=== PATIENT | female | born 1950 | race Caucasian/White ===

== ENCOUNTER 2016-11-11 01:55 | Emergency (ER) | payer OTHER, MEDICAID ==
[2016-11-11 03:41] VITALS: BP 123/66
== END 2016-11-11 03:41 | disposition home or self-care (01) ==
LOC: ED 01:55
DX: L02.414 Cutaneous abscess of left upper limb (principal); L03.114 Cellulitis of left upper limb; E11.40 Type 2 diabetes mellitus with diabetic neuropathy, unspecified; Z79.4 Long term (current) use of insulin; Z79.84 Long term (current) use of oral hypoglycemic drugs; Z79.899 Other long term (current) drug therapy; Z90.49 Acquired absence of other specified parts of digestive tract; Z90.710 Acquired absence of both cervix and uterus
CPT/HCPCS: J2001

== ENCOUNTER 2016-11-18 23:48 | Inpatient (IN) | payer OTHER, MEDICAID ==
[~2016-11-18] VITALS: Ht 154.9 cm; Wt 71.4 kg
--- NOTE | 2016-11-19 00:59 | NUR ---
PT PRESENTS TO ED WITH C/O BILATERAL LEG PAIN. PT STATES SHE ALMOST FELL DOWN AND SHE TRIED TO BREAK THE FALL AND HURT HERSELF. PT REPORTS PAIN STARTS ON HIPS AND RADIATES TO LOWER EXTREMITIES. PT HAS FULL ROM ON BOTH EXTREMITIES. PT REPORTS PAIN LEVEL 10/10 AND DESCRIBES PAIN "CRAMPING." PT IS AAOX4, BREATHING EVEN AND UNLABORED. PT IN NO ACUTE DISTRESS. AWAITING MSE.
[2016-11-19 03:08] LABS: BASOPHIL % 3.6 % (0-2); PLATELET COUNT 431 x10^3mcL (130-400); RED CELL DISTRIBUTION WIDTH 13.1 % (11.5-14.5)
[2016-11-19 03:15] LABS: CALCIUM 8.8 mg/dL (8.5-10.1); CARBON DIOXIDE 24.1 mmol/L (21-32); CREATININE SERUM 1.7 mg/dL (0.6-1.0)
--- NOTE | 2016-11-19 03:17 | NUR ---
PT RESTING WITH DAUGHTER AT BEDSIDE. PT IS AAOX4, BREATHING EVEN AND UNLABORED. PT IN NO ACUTE DISTRESS.
[2016-11-19 03:19] LABS: POTASSIUM SERUM 6.7 mmol/L (3.5-5.1)
[2016-11-19 03:27] LABS: microscopic required? NO
[2016-11-19 03:44] LABS: urine erythrocyte NEGATIVE (NEGATIVE)
--- NOTE | 2016-11-19 04:36 | NUR ---
PT SLEEPING, AWAKES WITH VERBAL STIMULI. PT IS AAOX4, BREATHING EVEN AND UNLABORED. PT IN NO ACUTE DISTRESS. FAMILY BY BEDSIDE.
[2016-11-19] MEDS ORDERED: WELLBUTRIN XL150 M1 PO (06:04)
[2016-11-19] MEDS ORDERED: NAPROSYN500 MG PO (06:04)
[2016-11-19] MEDS ORDERED: NEU300 PO (06:04)
[2016-11-19] MEDS ORDERED: JANUVIA100 M1 PO (06:05)
[2016-11-19] MEDS ORDERED: METFORMIN500 M1 PO ×2 (06:05→09:44)
[2016-11-19] MEDS ORDERED: LANTUS SOLOS100 U/M1 SQ (06:05)
[2016-11-19] MEDS ORDERED: HUMALOG100 UNIT/1 SQ (06:05)
[2016-11-19] MEDS ORDERED: LASIX20 MG PO (06:06)
[2016-11-19] MEDS ORDERED: LIPI10 PO (06:06)
[2016-11-19] MEDS ORDERED: KEN025C TOP (06:06)
[2016-11-19] MEDS ORDERED: ECONAZOLE NITRATE1% TOP (06:06)
[2016-11-19] MEDS ORDERED: RAMIPRIL10 M1 PO (06:06)
[2016-11-19] MEDS ORDERED: OMEPRAZOLE20 M4 PO (06:07)
--- NOTE | 2016-11-19 06:19 | NUR ---
GAVE REPORT TO CHUY TOVAR, TO ASSUME CARE POST TRASNFER TO ROOM 261A
--- NOTE | 2016-11-19 06:51 | NUR ---
PT ARRIVED VIA [facility] ACCOMPANIED BY ER NURSE AND DAUGHTER. A/O X4, MOSTLY WELSH SPEAKING. TELE #44, NSR, DENIES CHEST PAIN. PULSES PALPABLE, NO EDEMA PRESENT. LUNG SOUNDS CTA, BREATHING FREELY ON RA. PT DENIES SOB AT THIS TIME, BUT ADMITS TO SOB UPON EXERTION. ABD SOFT AND ROUND, BOWEL TONES ACTIVE, LBM-11/18/16, FORMED. VOIDS ADEQUATELY. PT'S DAUGHTER REPORTS PT IS AMBULATORY WITHOUT ASSIST AT HOME, BUT USES A CANE WHEN GOING TO RUN ERRANDS. ABRASION NOTED TO LEFT ELBOW, NO ACTIVE BLEEDING. PT DENIES PAIN. IV TO RAC, PATENT AND INTACT. ORIENTED PT TO ROOM AND SURROUNDINGS. BED IN LOWEST SETTING, SIDE RAILS UP X2, CALL LIGHT WITHIN REACH. WILL ENDORSE CARE TO AM NURSE.
[2016-11-19 06:54] VITALS: BP 120/58
[2016-11-19 06:55] LABS: MAGNESIUM 2.7 mg/dL (1.8-2.4); PHOSPHOROUS 4.7 mg/dL (2.5-4.9)
[2016-11-19 06:56] LABS: CHOLESTEROL/HDL RATIO 4.2
[2016-11-19 07:03] LABS: FREE T4 0.92 ng/dL (0.76-1.46); FREE THYROXINE INDEX 2.3 ug/dL (1.4-4.5); T4(THYROXINE) 5.9 ug/dL (4.7-13.3)
[2016-11-19 07:25] VITALS: BP 120/58
[2016-11-19 07:47] LABS: T3 TOTAL 0.76 ng/mL
--- NOTE | 2016-11-19 08:15 | NUR ---
PT IS AWAKE ALERT AND ORIENTED X4 ABLE TO MAKE NEEDS KNOWN. LUNGS CTA, DENIES SOB. TELE 44, SR. PULSES EQUAL BILATERAL MILD GENERALIZED EDEMA. GENERALIZED WEAKNESS, CANE AT BEDSIDE, LEO IN LOW POSITION, NON SKID FOOTWEQAR IN PLACE, CALL LIGHT IN REACH FAMILY AT BEDSIDE. WILL CONTINUE TO MONITOR.
[2016-11-19 08:31] VITALS: BP 120/58
[2016-11-19] MEDS ORDERED: LIPI20 PO (09:44)
--- NOTE | 2016-11-19 11:12 | NUR ---
PT IS RESTING IN BED, FAMILY AT BEDSIDE. NO SIGNS OF DISTRESS DENIES PAIN AT THIS TIME. WILL CONTINUE TO MONITOR.
[2016-11-19 12:00] VITALS: BP 130/80
[2016-11-19 12:47] LABS: CALCIUM 8.8 mg/dL (8.5-10.1); CARBON DIOXIDE 26.2 mmol/L (21-32); CREATININE SERUM 1.4 mg/dL (0.6-1.0)
[2016-11-19 13:01] LABS: POTASSIUM SERUM 5.6 mmol/L (3.5-5.1)
--- NOTE | 2016-11-19 13:05 | NUR ---
PAGED DR MORENO
--- NOTE | 2016-11-19 17:01 | NUR ---
BLOOD SUGAR CHECKED 126 NO COVERAGE.
[2016-11-19 17:07] VITALS: BP 129/63
--- NOTE | 2016-11-19 17:41 | NUR ---
PT RESTING IN BED NO SIGNS OF DISTRESS CALL LIGHT IN REACH WILL CONTINUE TO MONITOR.
[2016-11-19 18:45] LABS: CALCIUM 8.8 mg/dL (8.5-10.1); CARBON DIOXIDE 25.4 mmol/L (21-32); CREATININE SERUM 1.3 mg/dL (0.6-1.0); POTASSIUM SERUM 5.2 mmol/L (3.5-5.1)
--- NOTE | 2016-11-19 19:51 | NUR ---
REC'D REPORT FROM DAY NURSE. AAOX4. SITTING UP IN BED, EATING DINNER. DENIES PAIN AT THIS TIME. NO DISTRESS NOTED. TELE #44 NSR. LUNG SOUNDS ARE CTA. NO SOB. BREATHING EVEN AND UNLABORED. DENIES N/V/D. LBM WAS 11/19/16. ABD SOFT AND ROUND, ACTIVE X4. NO EDEMA NOTED. IV ACCESS TO THE RAC INFUSING @100 ML/HR. BED IN LOWEST POSITION. CALL LIGHT WITHIN REACH. WILL PROCEED TO THE PLAN OF CARE.
[2016-11-19 20:54] VITALS: BP 127/46
--- NOTE | 2016-11-19 23:30 | NUR ---
ROUNDS MADE, PT IS CURRENTLY WATCHING TV. NO ACUTE DISTRESS NOTED. NO SOB. BREATHING EVEN AND UNLABORED. DENIES N/V. WILL CONT TO MONITOR.
--- NOTE | 2016-11-20 01:55 | NUR ---
ROUNDS MADE, PT IS SLEEPING. NO DISTRESS NOTED. WILL CONT TO MONITOR.
--- NOTE | 2016-11-20 05:50 | NUR ---
PT SLEPT PERIODICALLY THROUGHOUT THE NIGHT. NO SIGNIFICANT CHANGES OR DISTRESS NOTED. ALL NEEDS MET AND ATTENDED TO. BREATHING EVEN AND UNLABORED. IV INTACT AND PATENT INFUSING WELL. WILL CONT TO MONITOR.
[2016-11-20 06:38] LABS: CALCIUM 8.4 mg/dL (8.5-10.1); CARBON DIOXIDE 28.3 mmol/L (21-32); MAGNESIUM 1.8 mg/dL (1.8-2.4); POTASSIUM SERUM 4.3 mmol/L (3.5-5.1)
--- NOTE | 2016-11-20 06:40 | NUR ---
WILL ENDORSE ALL CONTINUITY CARE TO ONCOMING NURSE.
[2016-11-20 06:41] LABS: BASOPHIL % 0.4 % (0-2); PLATELET COUNT 388 x10^3mcL (130-400)
[2016-11-20 06:43] VITALS: BP 134/61
--- NOTE | 2016-11-20 08:00 | NUR ---
PATIENT RECEIVED ALERT ND OREINTED TIMES FOUR. PATIENT AMBULATES WTIH A CANE AND DENIES ANY DIZZINESS OR LIGHT HEADEDNESS.PTEINT TOLERATED DIET AND FLUIDS WELL. APTIENT AHS NO EDEMA AND PATIEN TIS WITH DISTENDED BUT SOFT ABDOOMEN.LUNG ARE CLEAR AND NO COUGH OR CONGESTION TOED. PATIENT WITH VITALS AT 97.8 88, 18, 134/61, 98% ON ROOM AIR. PATEINT LAST BLOOD SUGAR WAS AT 102. PATIE SAMUEL NOTED LABS OF H AND H OF 7.9/25, AND IS PRESENTLY ON IRON INDICATED. PATENTAS HAS BUN OF 19.0, CHLORIDE OF 109, PTT AT 23.0 AND PT AT 9.4. PATIEN REGLA NEGATIVE CHEST XRAY AND DENIES PAIN OR DISCOMFORT AT THIS TME. POTASSIUM IS NOW AT 4.3 FORM 5.2.M HX OF DM, NEUROPATHY AND ARTHRITIS NTOED. NO KNOWN ALLERGIES.
--- NOTE | 2016-11-20 08:30 | NUR ---
PATIENT SEEN BY THE INTERNS AND RESIDENT AND PLAN OF CARE DISCUSSED. PATIENT HAS BEEN TOLD SHE WILL BE DISCHARGED TO HOME TODAY.
[2016-11-20 09:11] VITALS: BP 129/69
--- NOTE | 2016-11-20 13:00 | NUR ---
PATIENT BLOOD SUGAR AT LUNCH AT 204 AND GAVE6 UNITS OF REGULAR ORDERED. PATIENT TOLERATED DIET AND FLUIDS WELL. AWAITING DISCHARGE ORDERED FOR DISCHARGE HOME TODAY. FAMILY AT BEDSIDE AWAITING ORDERS.
[2016-11-20] MEDS ORDERED: FERL PO (13:24)
[2016-11-20] MEDS ORDERED: VITAMIN C100 M2 PO (13:25)
[2016-11-20 13:38] VITALS: BP 128/57
[2016-11-20 14:21] VITALS: BP 128/57
--- NOTE | 2016-11-20 14:56 | NUR ---
PAGED TYPEWRITER TESTER TO REQUEST TO FINALIZE THE ORDERS FOR DISCHARGE SO PATIENT CAN GO HOME.
--- NOTE | 2016-11-20 15:42 | NUR ---
GAVED DISCHARGE PAPERWORK TO THE PATIENT AND PATIENT WANTS A COPY OF HER LABS AND SHE IS FOR DISCHARER HOME TODAY AND TO FOLOOW [facility]OP WITH PIRMARY INDICATED. SHE IS TO TAKE IRON DIRRECTED FOR ANEMIA AND EDUCATION GIVEN FOR ANEMIA, GLUCOSE AND HYPERTENSION. PATIENT IS ANXIOUS TO GO HOME TODAY. IV REMOVED ALONG WITH THE TELE MONITOR. AWAITING PATIENT TO GET DRESSED AND WILL DISCHARGE TO HOME INDICATED.
--- NOTE | 2016-11-20 17:12 | NUR ---
DISCHARGE TO HOME WITH ALL BELONGINGS. PATIENT IN NO ACUTE DISTRESS AT THE TIME OF DISCHARGE.
== END 2016-11-20 16:11 | disposition home or self-care (01) | DRG 640 ==
LOC: ED 23:48 → DU 11-19 05:37
PROVIDERS: Emergency Medicine Emergency Medical Services; ADMIT Family Medicine Sports Medicine
DX: E87.5 Hyperkalemia (principal); N17.0 Acute kidney failure with tubular necrosis; D64.9 Anemia, unspecified; E11.42 Type 2 diabetes mellitus with diabetic polyneuropathy; E78.5 Hyperlipidemia, unspecified; M19.90 Unspecified osteoarthritis, unspecified site; F17.210 Nicotine dependence, cigarettes, uncomplicated; Z68.29 Body mass index [BMI] 29.0-29.9, adult; Z79.4 Long term (current) use of insulin
CPT/HCPCS: 84439; J1815; J3490; J7030; Q0092

== ENCOUNTER 2017-09-05 17:25 | Emergency (ER) | payer OTHER, MEDICAID ==
[~2017-09-05] VITALS: Ht 160 cm; Wt 75.3 kg
[~2017-09-05 17:25] MED LIST: ECONAZOLE NITRATE1% TOP; FERL PO; HUMALOG100 UNIT/1 SQ; JANUVIA100 M1 PO; KEN025C TOP; LANTUS SOLOS100 U/M1 SQ; LASIX20 MG PO; LIPI10 PO; LIPI20 PO; METFORMIN500 M1 PO; NAPROSYN500 MG PO; NEU300 PO; OMEPRAZOLE20 M4 PO; RAMIPRIL10 M1 PO; VITAMIN C100 M2 PO; WELLBUTRIN XL150 M1 PO
[2017-09-05 20:52] VITALS: BP 143/75
== END 2017-09-05 20:52 | disposition home or self-care (01) ==
LOC: ED 17:25
DX: L03.116 Cellulitis of left lower limb (principal); E11.9 Type 2 diabetes mellitus without complications; F17.210 Nicotine dependence, cigarettes, uncomplicated; Z71.6 Tobacco abuse counseling
CPT/HCPCS: 99406

== ENCOUNTER 2018-10-15 08:29 | Emergency (ER) | payer OTHER, MEDICAID ==
[~2018-10-15] VITALS: Ht 154.9 cm; Wt 76.2 kg
[2018-10-15 08:33] VITALS: Ht 154.9 cm; Wt 76.2 kg
[2018-10-15 10:25] LABS: BASOPHIL % 0.4 % (0-2); PLATELET COUNT 308 x10^3mcL (130-400); RED CELL DISTRIBUTION WIDTH 13.5 % (11.5-14.5)
[2018-10-15 10:34] LABS: CARBON DIOXIDE 24.8 mmol/L (21-32); CREATININE SERUM 1.1 mg/dL (0.6-1.0); POTASSIUM SERUM 4.8 mmol/L (3.5-5.1)
[2018-10-15 10:39] LABS: ALBUMIN 3.5 g/dL (3.4-5.0); BILIRUBIN TOTAL 0.4 mg/dL (0.20-1.00); TOTAL PROTEIN, SERUM 7.9 g/dL (6.4-8.2)
[2018-10-15 11:07] LABS: UA SPECIFIC GRAVITY 1.015 (1.005-1.035); microscopic required? YES; urine erythrocyte NEGATIVE (NEGATIVE)
[2018-10-15 13:01] VITALS: BP 154/71
== END 2018-10-15 13:06 | disposition home or self-care (01) ==
LOC: ED 08:29
PROVIDERS: Emergency Medicine
DX: R10.816 Epigastric abdominal tenderness (principal); R10.812 Left upper quadrant abdominal tenderness; K74.60 Unspecified cirrhosis of liver; F17.200 Nicotine dependence, unspecified, uncomplicated; L03.116 Cellulitis of left lower limb; E11.40 Type 2 diabetes mellitus with diabetic neuropathy, unspecified; M19.90 Unspecified osteoarthritis, unspecified site
CPT/HCPCS: 99406; J2270; J2405; J3010; J7030; Q0092; Q0162

== ENCOUNTER 2019-02-01 02:24 | Emergency (ER) | payer OTHER, MEDICAID ==
[~2019-02-01] VITALS: Ht 149.9 cm; Wt 66.7 kg
[2019-02-01 02:31] VITALS: Ht 149.9 cm; Wt 66.7 kg
[2019-02-01 03:25] LABS: microscopic required? YES; urine erythrocyte NEGATIVE (NEGATIVE)
[2019-02-01 03:25] LABS: BASOPHIL % 0.4 % (0-2); PLATELET COUNT 328 x10^3mcL (130-400)
[2019-02-01 04:39] LABS: CALCIUM 9.5 mg/dL (8.5-10.1); CARBON DIOXIDE 31.7 mmol/L (21-32); POTASSIUM SERUM 4.3 mmol/L (3.5-5.1)
[2019-02-01 04:43] LABS: ALBUMIN 3.9 g/dL (3.4-5.0); BILIRUBIN TOTAL 0.4 mg/dL (0.20-1.00)
[2019-02-01 05:34] VITALS: BP 152/86
== END 2019-02-01 05:33 | disposition home or self-care (01) ==
LOC: ED 02:24
PROVIDERS: Specialist
DX: N39.0 Urinary tract infection, site not specified (principal); E11.40 Type 2 diabetes mellitus with diabetic neuropathy, unspecified; M19.90 Unspecified osteoarthritis, unspecified site; Z90.49 Acquired absence of other specified parts of digestive tract; Z90.89 Acquired absence of other organs; Z90.710 Acquired absence of both cervix and uterus
CPT/HCPCS: J0696; J1885

== ENCOUNTER 2019-02-09 17:46 | Inpatient (IN) | payer OTHER, MEDICAID ==
[~2019-02-09] VITALS: Ht 152.4 cm; Wt 70.8 kg
[2019-02-09 17:49] VITALS: Ht 152.4 cm; Wt 70.8 kg
[2019-02-09 18:39] LABS: BASOPHIL % 0.3 % (0-2); PLATELET COUNT 336 x10^3mcL (130-400); RED CELL DISTRIBUTION WIDTH 13.9 % (11.5-14.5)
[2019-02-09 18:51] LABS: CALCIUM 9.5 mg/dL (8.5-10.1); CARBON DIOXIDE 24.5 mmol/L (21-32); CHLORIDE SERUM 104 mmol/L (98-107); CREATININE SERUM 0.9 mg/dL (0.6-1.0); GFR1 > 60 mL/min; GLUCOSE SERUM 150 mg/dL (74-106); POTASSIUM SERUM 4.4 mmol/L (3.5-5.1); SODIUM SERUM 140 mmol/L (136-145)
[2019-02-09 19:04] LABS: ALBUMIN 3.9 g/dL (3.4-5.0); ALKALINE PHOSPHATASE 113 U/L (46-116); ALT/SGPT 37 U/L (14-59); AST/SGOT 28 U/L (15-37); BILIRUBIN TOTAL 0.6 mg/dL (0.20-1.00); CHOLESTEROL 165 mg/dL (<200); HDL CHOLESTEROL 34 mg/dL (40-60); LIPASE 131 IU/L (73-393); MAGNESIUM 1.8 mg/dL (1.8-2.4); T4(THYROXINE) 5.5 ug/dL (4.7-13.3); TOTAL PROTEIN, SERUM 8.2 g/dL (6.4-8.2)
[2019-02-09 21:39] LABS: UA SPECIFIC GRAVITY 1.015 (1.005-1.035); microscopic required? YES; urine erythrocyte 2+ (NEGATIVE)
[2019-02-09 21:47] LABS: AMPHETAMINE QUAL UR NONE DETECTED (See below)
[2019-02-09 23:54] VITALS: BP 148/76
[2019-02-10 06:21] LABS: CALCIUM 9.3 mg/dL (8.5-10.1); CARBON DIOXIDE 28.5 mmol/L (21-32); CHLORIDE SERUM 104 mmol/L (98-107); CREATININE SERUM 0.8 mg/dL (0.6-1.0); GFR1 > 60 mL/min; GLUCOSE SERUM 195 mg/dL (74-106); MAGNESIUM 1.7 mg/dL (1.8-2.4); POTASSIUM SERUM 4.3 mmol/L (3.5-5.1); SODIUM SERUM 139 mmol/L (136-145)
[2019-02-10 06:26] VITALS: BP 111/59
[2019-02-10 06:49] LABS: BASOPHIL % 0.3 % (0-2); PLATELET COUNT 301 x10^3mcL (130-400); RED CELL DISTRIBUTION WIDTH 13.8 % (11.5-14.5)
[2019-02-10 09:28] VITALS: BP 140/68
[2019-02-10 13:01] VITALS: BP 145/76
[2019-02-10 18:37] VITALS: BP 129/73
[2019-02-10 20:40] VITALS: BP 132/73
[2019-02-11 05:41] VITALS: BP 153/68
[2019-02-11 06:43] LABS: BASOPHIL % 0.3 % (0-2); PLATELET COUNT 301 x10^3mcL (130-400); RED CELL DISTRIBUTION WIDTH 14.1 % (11.5-14.5)
[2019-02-11 06:53] LABS: CALCIUM 9.5 mg/dL (8.5-10.1); CARBON DIOXIDE 28.3 mmol/L (21-32); CHLORIDE SERUM 103 mmol/L (98-107); CREATININE SERUM 0.8 mg/dL (0.6-1.0); GFR1 > 60 mL/min; GLUCOSE SERUM 153 mg/dL (74-106); MAGNESIUM 1.9 mg/dL (1.8-2.4); POTASSIUM SERUM 3.8 mmol/L (3.5-5.1); SODIUM SERUM 139 mmol/L (136-145)
[2019-02-11 09:23] VITALS: BP 124/73
[2019-02-11 13:53] VITALS: BP 146/68
[2019-02-11 17:39] VITALS: BP 133/67
[2019-02-11] MEDS ORDERED: ACETAMINOPHEN-H1 TA1 PO (18:21)
[2019-02-11 21:08] VITALS: BP 107/59
[2019-02-12 05:12] VITALS: BP 149/68
[2019-02-12 06:19] LABS: BASOPHIL % 0.5 % (0-2); PLATELET COUNT 282 x10^3mcL (130-400)
[2019-02-12 06:46] LABS: CALCIUM 9.5 mg/dL (8.5-10.1); CARBON DIOXIDE 29.5 mmol/L (21-32); CHLORIDE SERUM 103 mmol/L (98-107); CREATININE SERUM 0.9 mg/dL (0.6-1.0); GFR1 > 60 mL/min; GLUCOSE SERUM 135 mg/dL (74-106); MAGNESIUM 1.8 mg/dL (1.8-2.4); POTASSIUM SERUM 3.8 mmol/L (3.5-5.1); SODIUM SERUM 140 mmol/L (136-145)
[2019-02-12 08:21] VITALS: BP 113/69
[2019-02-12 12:09] VITALS: BP 110/48
[2019-02-12 17:17] VITALS: BP 144/78
== END 2019-02-12 20:20 | DRG 74 ==
LOC: ED 17:46 → MU 22:38
PROVIDERS: Emergency Medicine; ADMIT Internal Medicine Pulmonary Disease
DX: E11.40 Type 2 diabetes mellitus with diabetic neuropathy, unspecified (principal); R54 Age-related physical debility; E11.65 Type 2 diabetes mellitus with hyperglycemia; I10 Essential (primary) hypertension; K74.60 Unspecified cirrhosis of liver; N20.0 Calculus of kidney; M48.54XD Collapsed vertebra, not elsewhere classified, thoracic region, subsequent encounter for fracture with routine healing; I87.8 Other specified disorders of veins; M19.90 Unspecified osteoarthritis, unspecified site; E78.00 Pure hypercholesterolemia, unspecified; F17.210 Nicotine dependence, cigarettes, uncomplicated; E66.9 Obesity, unspecified; Z68.30 Body mass index [BMI] 30.0-30.9, adult; Z91.81 History of falling; Z87.442 Personal history of urinary calculi; Z79.84 Long term (current) use of oral hypoglycemic drugs
CPT/HCPCS: 82962; 97112-GP; 97116-GP; 97530-GP; G0378; G0480; J0295; J1100; J1815; J1885; J3475; J3490; J7030; Q0092

== ENCOUNTER 2019-08-02 16:59 | Emergency (ER) | payer OTHER ==
[~2019-08-02] VITALS: Ht 154.9 cm; Wt 69.9 kg
[~2019-08-02 16:59] MED LIST changes: +ACETAMINOPHEN-H1 TA1 PO
[2019-08-02 17:09] VITALS: Ht 154.9 cm; Wt 69.9 kg
[2019-08-02 17:56] LABS: BASOPHIL % 0.3 % (0-2); PLATELET COUNT 286 x10^3mcL (130-400)
[2019-08-02 17:57] LABS: RED CELL DISTRIBUTION WIDTH 15.9 % (11.5-14.5)
[2019-08-02 18:09] LABS: CALCIUM 8.7 mg/dL (8.5-10.1); CARBON DIOXIDE 25.9 mmol/L (21-32); CREATININE SERUM 1.5 mg/dL (0.6-1.0); POTASSIUM SERUM 4.9 mmol/L (3.5-5.1)
[2019-08-02 18:11] LABS: BILIRUBIN TOTAL 0.3 mg/dL (0.20-1.00); TOTAL PROTEIN, SERUM 7.3 g/dL (6.4-8.2)
[2019-08-02 20:10] VITALS: BP 127/63
== END 2019-08-02 20:10 | disposition home or self-care (01) ==
LOC: ED 16:59
PROVIDERS: Emergency Medicine
DX: N39.0 Urinary tract infection, site not specified (principal); R53.1 Weakness; I10 Essential (primary) hypertension; E11.9 Type 2 diabetes mellitus without complications; E11.40 Type 2 diabetes mellitus with diabetic neuropathy, unspecified; E78.00 Pure hypercholesterolemia, unspecified; Z90.710 Acquired absence of both cervix and uterus; Z98.890 Other specified postprocedural states; Z87.442 Personal history of urinary calculi
CPT/HCPCS: 36415; 83880; J0696; J7030; J7040; J7060; Q0092